=== PATIENT | male | born 1955 | race Caucasian/White ===

== ENCOUNTER 2018-08-06 22:40 | Emergency (ER) | payer MEDICAID ==
[~2018-08-06] VITALS: Ht 172.7 cm; Wt 136.1 kg
[~2018-08-06 22:40] MED LIST: ALBUAER3 IN; AMLO10TA12 PO; ASPI-231 PO; ATEN-60 PO; ATO40T PO; BACL10TA PO; BECL80AE9 IN; CLOP75TA41 PO; COLC1TAB3 PO; ERGO1CAP23 PO; EZET10TA6 PO; FAM20T PO; FLUT50SP13; FURO20TA3 PO; GLUCINJ IJ; HYDR-4683 PO; HYDR10TA26 PO; LISI40TA PO; LORA-352 PO; NITR400A5 TL; NORT25CA PO; OXYB5TAB24 PO; PANT1INJ3 PO; POTA10TA75 PO; SUMA100T15 PO; TAMS0.4C36 PO; TERA5CAP42 PO; insulin NPH SC
[2018-08-06] MEDS ORDERED: ONDANSETRON HCL 4 MG/2 ML VIAL ONE (23:26)
[2018-08-07 00:03] LABS: Basophils # (auto) 0 uL; Basophils % (auto) 0.5 % (0.0-2.0); Eosinophils # (auto) 0 uL; Lymphocytes # (auto) 0.7 uL; Monocytes # (auto) 0.8 uL; Neutrophils # (auto) 7.9 uL; White Blood Cell 9.5 10^3/uL (4.4-10.8)
[2018-08-07 00:05] LABS: Eosinophils % (auto) 0.1 % (0.0-7.0); Hematocrit 18.7 % (41.0-53.0); Lymphocytes % (auto) 7.4 % (10.0-50.0); Mean Corpuscular Hemoglobin 25.7 pg (28.0-32.0); Mean Corpuscular Hgb Conc. 32.7 g/dL (32.0-36.0); Mean Corpuscular Volume 78.6 fL (80.0-100.0); Monocytes % (auto) 8.2 % (0.0-12.0); Neutrophils % (auto) 83.8 % (37.0-80.0); Platelet Count (auto) 182 10^3/uL (140-450); Red Blood Cells 2.38 10^6/uL (4.5-5.90); Red Cell Distribution Width 15.6 % (11.8-14.3)
[2018-08-07 00:09] LABS: Hemoglobin 6.1 g/dL (13.5-17.5)
[2018-08-07 00:14] LABS: INR 1.07 (0.9-1.15); Partial Thromboplastin Time 25.5 sec (23.78-33.04); Prothrombin Time 11.4 sec (9.27-12.13)
[2018-08-07 00:18] LABS: Alanine Aminotransferase 20 U/L (16-61); Albumin 2.3 g/dL (3.4-5.0); Anion Gap 9 (5-15); Aspartate Aminotransferase 13 U/L (15-37); BUN/Creatinine Ratio 8.7; Blood Urea Nitrogen 52 mg/dL (7-18); Calcium 7.2 mg/dL (8.5-10.1); Carbon Dioxide 23 mmol/L (21-32); Chloride 108 mmol/L (98-107); GFR African American 12 mL/min; GFR Non-African American 10 mL/min; Glucose 159 mg/dL (74-106); Magnesium 2.5 mg/dL (1.6-2.6); Potassium 5.3 mmol/L (3.5-5.1); Sodium 140 mmol/L (136-145)
[2018-08-07 00:23] LABS: Alkaline Phosphatase 56 U/L (45-117); Bilirubin, Total 0.3 mg/dL (0.2-1.0); Total Protein 5.7 g/dL (6.4-8.2)
[2018-08-07] MEDS ORDERED: traMADol HCL 50 MG TAB PO ONE (01:00)
[2018-08-07] MEDS ORDERED: PANTOPRAZOLE 40 MG/10 ML VIAL IV ONE ×2 (03:30→03:45)
[2018-08-07 03:38] VITALS: BP 128/73
[2018-08-07 05:00] VITALS: BP 134/71
[2018-08-07 05:37] VITALS: BP 131/82
[2018-08-07 06:05] VITALS: BP 135/65
== END 2018-08-07 06:25 | disposition short-term general hospital (02) ==
LOC: EDUNIT# 22:40 → EDBD 22:40 → ER 22:42
DX: S09.90XA Unspecified injury of head, initial encounter (principal); D64.89 Other specified anemias; K92.2 Gastrointestinal hemorrhage, unspecified; E87.5 Hyperkalemia; E11.22 Type 2 diabetes mellitus with diabetic chronic kidney disease; I12.0 Hypertensive chronic kidney disease with stage 5 chronic kidney disease or end stage renal disease; N18.6 End stage renal disease; M48.00 Spinal stenosis, site unspecified; G40.909 Epilepsy, unspecified, not intractable, without status epilepticus; J45.909 Unspecified asthma, uncomplicated; I25.2 Old myocardial infarction; Z86.73 Personal history of transient ischemic attack (TIA), and cerebral infarction without residual deficits; Z99.2 Dependence on renal dialysis; X58.XXXA Exposure to other specified factors, initial encounter; Y93.89 Activity, other specified; Y99.8 Other external cause status; Y92.89 Other specified places as the place of occurrence of the external cause
CPT/HCPCS: 36415; 36430; 70450; 71045; 72125; 74176; 80053; 82962; 83735; 83880; 84484; 85025; 85610; 85730; 86850; 86900; 86901; 86920; 93005; 94761; 96374; 99285; C9113; J2405; J7040; P9016

== ENCOUNTER → 2020-02-13 | Emergency (ER) | payer MEDICAID ==
[~2020-02-13] VITALS: Ht 175.3 cm; Wt 95.3 kg
[~2020-02-13] MED LIST changes: -AMLO10TA12 PO; +AMLO10TA13 PO; +EZET10TA22 PO; -EZET10TA6 PO; -HYDR-4683 PO; +HYDR-4833 PO; +SODIUM CHLORIDE 0.9% 1,000 ML IV ONE; +SODIUM CHLORIDE 0.9% 500 ML IV ONE
[2020-02-13 15:58] LABS: Hematocrit 29.1 % (41.0-53.0); Hemoglobin 9.8 g/dL (13.5-17.5); Mean Corpuscular Hemoglobin 31.4 pg (28.0-32.0); Mean Corpuscular Hgb Conc. 33.7 g/dL (32.0-36.0); Mean Corpuscular Volume 93.2 fL (80.0-100.0); Platelet Count (auto) 247 10^3/uL (140-450); Red Blood Cells 3.12 10^6/uL (4.5-5.90); Red Cell Distribution Width 16.9 % (11.8-14.3); White Blood Cell 4.6 10^3/uL (4.4-10.8)
[2020-02-13 16:03] LABS: Basophils % (manual) 0 (0.0-2.0); Blast Cells 0; Metamyelocytes % 0; Myelocytes % 0; Promyelocytes % 0; Reactive Lymphocytes 0
[2020-02-13 16:19] LABS: INR 0.98 (0.9-1.15); Partial Thromboplastin Time 27.9 sec (23.64-32.05)
[2020-02-13 16:23] LABS: Albumin 2.3 g/dL (3.4-5.0); Anion Gap 6 (5-15); Blood Urea Nitrogen 27 mg/dL (7-18); Calcium 8.6 mg/dL (8.5-10.1); Carbon Dioxide 31 mmol/L (21-32); Chloride 96 mmol/L (98-107); Glucose 134 mg/dL (74-106); Magnesium 2.1 mg/dL (1.6-2.6); Potassium 3.6 mmol/L (3.5-5.1); Sodium 133 mmol/L (136-145)
[2020-02-13 16:31] LABS: Alanine Aminotransferase 28 U/L (16-61); Alkaline Phosphatase 107 U/L (45-117); Aspartate Aminotransferase 25 U/L (15-37); BUN/Creatinine Ratio 2.8; Bilirubin, Total 0.2 mg/dL (0.2-1.0); GFR African American 7 mL/min; GFR Non-African American 6 mL/min; Total Protein 6.9 g/dL (6.4-8.2)
[2020-02-13 16:54] LABS: Band Neutrophils % (manual) 2; Eosinophils % (manual) 3 (0-7); Lymphocytes % (manual) 23 (10.0-50.0); Monocytes % (manual) 18 (0-12)
[2020-02-13 18:43] VITALS: BP 107/58
== END | disposition home or self-care (01) ==
LOC: EDUNIT# 15:13 → EDBD 15:16 → ER 15:16
DX: I13.2 Hypertensive heart and chronic kidney disease with heart failure and with stage 5 chronic kidney disease, or end stage renal disease (principal); D63.1 Anemia in chronic kidney disease; E11.22 Type 2 diabetes mellitus with diabetic chronic kidney disease; N18.6 End stage renal disease; I50.9 Heart failure, unspecified; Z99.2 Dependence on renal dialysis; E86.1 Hypovolemia; R42 Dizziness and giddiness; I25.10 Atherosclerotic heart disease of native coronary artery without angina pectoris; J45.909 Unspecified asthma, uncomplicated; J44.9 Chronic obstructive pulmonary disease, unspecified; K21.9 Gastro-esophageal reflux disease without esophagitis; M10.9 Gout, unspecified
CPT/HCPCS: 36415; 71045; 80053; 83735; 83880; 84443; 84484; 85007; 85027; 85610; 85730; 93005; 96360; 96361

== ENCOUNTER 2021-06-18 11:35 | Inpatient (IN) | payer OTHER, MEDICAID ==
[~2021-06-18] VITALS: Ht 175.3 cm; Wt 118.2 kg
[~2021-06-18 11:35] MED LIST changes: +AMLO-496 PO; -AMLO10TA13 PO; -CLOP75TA41 PO; +CLOP75TA70 PO; -FAM20T PO; +FAMO20TA10 PO; -LISI40TA PO; +LISI40TA11 PO; -LORA-352 PO; +LORA10TA6 PO; +POTA-264 PO; -POTA10TA75 PO; -SODIUM CHLORIDE 0.9% 1,000 ML IV ONE; -SODIUM CHLORIDE 0.9% 500 ML IV ONE
[2021-06-18 12:12] LABS: Hematocrit 39.9 % (41.0-53.0); Hemoglobin 12.9 g/dL (13.5-17.5); Mean Corpuscular Hemoglobin 29.5 pg (28.0-32.0); Mean Corpuscular Hgb Conc. 32.3 g/dL (32.0-36.0); Mean Corpuscular Volume 91.2 fL (80.0-100.0); Red Blood Cells 4.38 10^6/uL (4.5-5.90); Red Cell Distribution Width 17.6 % (11.8-14.3); White Blood Cell 4.8 10^3/uL (4.4-10.8)
[2021-06-18 12:17] LABS: Band Neutrophils % (manual) 0; Basophils % (manual) 0 (0.0-2.0); Blast Cells 0; Metamyelocytes % 0; Myelocytes % 0; Promyelocytes % 0; Reactive Lymphocytes 0
[2021-06-18 12:24] LABS: Albumin 2.5 g/dL (3.4-5.0); Anion Gap 13 (5-15); Blood Urea Nitrogen 37 mg/dL (7-18); Calcium 8.6 mg/dL (8.5-10.1); Carbon Dioxide 24 mmol/L (21-32); Chloride 97 mmol/L (98-107); Glucose 191 mg/dL (74-106); Magnesium 2.2 mg/dL (1.6-2.6); Potassium 3.9 mmol/L (3.5-5.1); Sodium 134 mmol/L (136-145)
[2021-06-18 12:30] LABS: Alanine Aminotransferase 42 U/L (16-61); Alkaline Phosphatase 92 U/L (45-117); Aspartate Aminotransferase 34 U/L (15-37); BUN/Creatinine Ratio 3.8; Bilirubin, Total 0.4 mg/dL (0.2-1.0); GFR African American 7 mL/min; GFR Non-African American 6 mL/min
[2021-06-18 12:33] LABS: INR 1.02 (0.9-1.15); Partial Thromboplastin Time 25.6 sec (23.0-31.2)
[2021-06-18 12:39] LABS: Eosinophils % (manual) 2 (0-7); Lymphocytes % (manual) 24 (10.0-50.0); Monocytes % (manual) 14 (0-12)
[2021-06-18] MEDS ORDERED: DEXTROSE (50%) 50ML SYRG IV PRN (15:45)
[2021-06-18] MEDS ORDERED: BACLOFEN 10 MG TAB PO PRN (15:45)
[2021-06-18] MEDS ORDERED: MORPHINE SULF INJ 2 MG/ML SYRINGE 1ML IV PRN (15:45)
[2021-06-18] MEDS ORDERED: NITROGLYCERIN 0.4 MG SL TAB SL PRN (15:45)
[2021-06-18] MEDS: InsuLIN REG 1unit/0.01ml Soln (100units/ml) SC SCH ×2 (17:00→22:46)
[2021-06-18] MEDS: ACCU-CHEK COMFORT CURVE STRIP VI SCH ×2 (18:16→22:00)
[2021-06-18 19:00] VITALS: BP 129/74
[2021-06-18 22:00] VITALS: BP 139/75
[2021-06-18] MEDS: ATENOLOL 25 MG TAB PO SCH (22:00)
[2021-06-19 05:00] VITALS: BP 119/69
[2021-06-19] MEDS: ACCU-CHEK COMFORT CURVE STRIP VI SCH ×4 (06:50→21:44)
[2021-06-19] MEDS: InsuLIN REG 1unit/0.01ml Soln (100units/ml) SC SCH ×4 (06:52→21:45)
[2021-06-19 09:00] VITALS: BP 114/64
[2021-06-19] MEDS: ASPirin-EC 81 mg tab PO SCH (09:53)
[2021-06-19] MEDS: CLOPIDOGREL BISULFATE 75 MG TAB PO SCH (09:53)
[2021-06-19] MEDS ORDERED: FAMOTIDINE 20 MG TAB PO SCH (10:00)
[2021-06-19] MEDS ORDERED: PANTOPRAZOLE 40 MG/10 ML VIAL INJ IV SCH (10:00)
[2021-06-19] MEDS: ATENOLOL 25 MG TAB PO SCH ×2 (10:00→21:53)
[2021-06-19 12:54] VITALS: BP 119/73
[2021-06-19] MEDS ORDERED: IODIXANOL 320MG/ML 100ML BTL IV ONE (12:58)
[2021-06-19] MEDS ORDERED: fentaNYL CITRATE 100 MCG/2 ML VL ONE (13:01)
[2021-06-19] MEDS ORDERED: HEPARIN SODIUM (PORCINE) 5000 UNITS/ML 1ML VIAL ONE (13:01)
[2021-06-19] MEDS ORDERED: VERAPAMIL 2.5MG/ML INJ 2ML VIAL IV ONE (13:01)
[2021-06-19] MEDS ORDERED: ANGIOMAX 250 MG VIAL IV ONE (13:01)
[2021-06-19] MEDS ORDERED: MIDAZOLAM HCL 1MG/1ML-2 ML VIAL ONE (13:02)
[2021-06-19] MEDS ORDERED: SODIUM CHL 0.9% 50 ML ONE (13:02)
[2021-06-19 13:27] LABS: Phosphorus 6.1 mg/dL (2.5-4.90); Uric Acid 4.8 mg/dL (3.5-7.2)
[2021-06-19] MEDS ORDERED: PHENYLEPHRINE HCL 10 MG/ML VL ONE (14:09)
[2021-06-19] MEDS ORDERED: HYDROcodone-ACET 5/325MG TAB PO PRN (15:15)
[2021-06-19] MEDS ORDERED: ONDANSETRON HCL 4 MG/2 ML VIAL IV PRN (15:15)
[2021-06-19] MEDS ORDERED: HYDROcodone-ACET 5/325MG TAB ONE (15:17)
[2021-06-19 16:51] VITALS: BP 110/68
[2021-06-19] MEDS ORDERED: TAMSULOSIN HYDROCHLORIDE 0.4 MG CAP PO SCH (18:00)
[2021-06-19] MEDS: SODIUM CHLOR 0.9% PF (SALINE LOCK) 10ML VIAL/SYR IV SCH (21:33)
[2021-06-19 22:00] VITALS: BP 160/91
[2021-06-19] MEDS ORDERED: ATORVASTATIN 20 MG TAB PO SCH (22:00)
[2021-06-20 05:00] VITALS: BP 143/108
[2021-06-20] MEDS: SODIUM CHLOR 0.9% PF (SALINE LOCK) 10ML VIAL/SYR IV SCH ×2 (05:49→14:00)
[2021-06-20 06:19] VITALS: BP 103/55
[2021-06-20] MEDS: ACCU-CHEK COMFORT CURVE STRIP VI SCH ×2 (06:21→12:25)
[2021-06-20] MEDS: InsuLIN REG 1unit/0.01ml Soln (100units/ml) SC SCH ×2 (06:26→12:40)
[2021-06-20 09:00] VITALS: BP 121/94
[2021-06-20] MEDS: ATENOLOL 25 MG TAB PO SCH (10:00)
[2021-06-20] MEDS ORDERED: ERGOCALCIFEROL 50,000 UNIT(1.25MG) CAP PO SCH (10:00)
[2021-06-20] MEDS: CLOPIDOGREL BISULFATE 75 MG TAB PO SCH (10:09)
[2021-06-20] MEDS: ASPirin-EC 81 mg tab PO SCH (10:09)
[2021-06-20] MEDS: ACETAMINOPHEN 500 MG TAB PO PRN ×2 (10:18→15:28)
[2021-06-20] MEDS ORDERED: LACT10SO70 PO (11:26)
[2021-06-20] MEDS ORDERED: ALBUAER3 IN (11:26)
[2021-06-20] MEDS ORDERED: GUAISYP6 PO (11:26)
[2021-06-20] MEDS ORDERED: DOCU100T15 PO (11:26)
[2021-06-20] MEDS ORDERED: VENL37.588 PO (11:26)
[2021-06-20] MEDS ORDERED: CALC600T49 PO (11:26)
[2021-06-20] MEDS ORDERED: CALC0.25 PO (11:26)
[2021-06-20] MEDS ORDERED: FEBU40TA PO (11:26)
[2021-06-20] MEDS ORDERED: GABA300C10 PO (11:26)
[2021-06-20] MEDS ORDERED: GENT0.1C3 EX (11:26)
[2021-06-20] MEDS ORDERED: NORT25CA PO (11:26)
[2021-06-20] MEDS ORDERED: TRAZ1TAB12 PO (11:26)
[2021-06-20] MEDS ORDERED: SEVE800T8 PO (11:26)
[2021-06-20] MEDS ORDERED: CICL80AE2 IN (11:26)
[2021-06-20] MEDS ORDERED: ATOR80TA PO (11:26)
[2021-06-20] MEDS ORDERED: FOLI1TAB6 PO (11:26)
[2021-06-20] MEDS ORDERED: SEVELAMER 800 MG TAB PO SCH (12:00)
[2021-06-20] MEDS ORDERED: PANTOPRAZOLE 40 MG TAB PO ONE (12:15)
[2021-06-20 13:00] VITALS: BP 126/67
[2021-06-20 16:19] VITALS: BP 93/40
[2021-06-20 17:32] VITALS: BP 101/58
[2021-06-21] MEDS ORDERED: PANTOPRAZOLE 40 MG TAB PO SCH (10:00)
== END 2021-06-20 18:00 | disposition home or self-care (01) | DRG 246 ==
LOC: ER 11:35 → EDBD 11:35 → TELE 15:32 → TELE-WESTW 17:17
PROVIDERS: ADMIT Nurse Practitioner Acute Care; ATTEND Internal Medicine
PROC: 027136Z Dilation of Coronary Artery, Two Arteries with Three Drug-eluting Intraluminal Devices, Percutaneous Approach (ICD-10-PCS; principal; 2021-06-19)
PROC: 4A023N7 Measurement of Cardiac Sampling and Pressure, Left Heart, Percutaneous Approach (ICD-10-PCS; 2021-06-19)
PROC: B211YZZ Fluoroscopy of Multiple Coronary Arteries using Other Contrast (ICD-10-PCS; 2021-06-19)
PROC: B215YZZ Fluoroscopy of Left Heart using Other Contrast (ICD-10-PCS; 2021-06-19)
PROC: B240ZZ3 Ultrasonography of Single Coronary Artery, Intravascular (ICD-10-PCS; 2021-06-19)
PROC: 3E073KZ Introduction of Other Diagnostic Substance into Coronary Artery, Percutaneous Approach (ICD-10-PCS; 2021-06-19)
DX: I24.9 Acute ischemic heart disease, unspecified (principal); N18.6 End stage renal disease; I13.2 Hypertensive heart and chronic kidney disease with heart failure and with stage 5 chronic kidney disease, or end stage renal disease; I25.10 Atherosclerotic heart disease of native coronary artery without angina pectoris; I95.0 Idiopathic hypotension; Z99.2 Dependence on renal dialysis; E66.9 Obesity, unspecified; D63.8 Anemia in other chronic diseases classified elsewhere; K21.9 Gastro-esophageal reflux disease without esophagitis; E78.5 Hyperlipidemia, unspecified; I95.1 Orthostatic hypotension; J44.9 Chronic obstructive pulmonary disease, unspecified; E11.22 Type 2 diabetes mellitus with diabetic chronic kidney disease; E11.65 Type 2 diabetes mellitus with hyperglycemia; N25.0 Renal osteodystrophy; N40.0 Benign prostatic hyperplasia without lower urinary tract symptoms; Z79.02 Long term (current) use of antithrombotics/antiplatelets; Z79.82 Long term (current) use of aspirin; Z79.84 Long term (current) use of oral hypoglycemic drugs; Z79.899 Other long term (current) drug therapy; Z82.49 Family history of ischemic heart disease and other diseases of the circulatory system; Z83.3 Family history of diabetes mellitus; Z86.73 Personal history of transient ischemic attack (TIA), and cerebral infarction without residual deficits; Z87.891 Personal history of nicotine dependence; Z95.5 Presence of coronary angioplasty implant and graft; I50.9 Heart failure, unspecified; E83.39 Other disorders of phosphorus metabolism
CPT/HCPCS: 36415; 71045; 80053; 82140; 82306; 82533; 82962; 83036; 83735; 83880; 83970; 84100; 84484; 84550; 85007; 85027; 85379; 85610; 85730; 87426; 93005; 93306; 99152; 99153; 99291; C1874; C1887; C9113; G0378; J1815; J2250; Q9967

== ENCOUNTER 2021-11-20 16:17 | Inpatient (IN) | payer OTHER, MEDICAID ==
[~2021-11-20] VITALS: Ht 175.3 cm; Wt 104.0 kg
[~2021-11-20 16:17] MED LIST changes: -AMLO-496 PO; -ASPI-231 PO; +ASPI1TAB20 PO; -ATEN-60 PO; +CALC0.25 PO; +CALC600T49 PO; +CICL80AE2 IN; +DOCU100T15 PO; +FEBU40TA PO; +FOLI1TAB6 PO; -FURO20TA3 PO; +GABA300C10 PO; +GENT0.1C3 EX; +GUAISYP6 PO; -HYDR10TA26 PO; +LACT10SO70 PO; -LISI40TA11 PO; -PANT1INJ3 PO; +SEVE800T8 PO; -TAMS0.4C36 PO; +TRAZ1TAB12 PO; +VENL37.588 PO; -insulin NPH SC
[2021-11-20] MEDS ORDERED: ASPirin 81 mg TAB PO ONE (17:00)
[2021-11-20] MEDS ORDERED: SODIUM CHLORIDE 0.9% 250 ML IV ONE (18:15)
[2021-11-20 18:18] LABS: Red Blood Cells 5.61 10^6/uL (4.5-5.90)
[2021-11-20 18:20] LABS: Hematocrit 49.4 % (41.0-53.0); Hemoglobin 15.1 g/dL (13.5-17.5); Mean Corpuscular Hgb Conc. 30.7 g/dL (32.0-36.0); Mean Corpuscular Volume 87.9 fL (80.0-100.0); Red Cell Distribution Width 19.6 % (11.8-14.3); White Blood Cell 5.5 10^3/uL (4.4-10.8)
[2021-11-20 18:26] LABS: Basophils % (manual) 0 (0.0-2.0); Blast Cells 0; Metamyelocytes % 0; Myelocytes % 0; Promyelocytes % 0; Reactive Lymphocytes 0
[2021-11-20 18:35] LABS: INR 1.25 (0.9-1.15); Partial Thromboplastin Time 30.7 sec (23.6-33.0)
[2021-11-20 18:37] LABS: Anion Gap 11 (5-15); Blood Urea Nitrogen 25 mg/dL (7-18); Carbon Dioxide 28 mmol/L (21-32); Chloride 95 mmol/L (98-107); Glucose 154 mg/dL (74-106); Magnesium 2.4 mg/dL (1.6-2.6); Sodium 134 mmol/L (136-145)
[2021-11-20 18:44] LABS: Alanine Aminotransferase < 6 U/L (16-61); Alkaline Phosphatase 136 U/L (45-117); Aspartate Aminotransferase 50 U/L (15-37); BUN/Creatinine Ratio 2.8; Bilirubin, Total 0.4 mg/dL (0.2-1.0); GFR African American 8 mL/min; GFR Non-African American 6 mL/min; Total Protein 6.6 g/dL (6.4-8.2)
[2021-11-20 18:59] LABS: Potassium 2.9 mmol/L (3.5-5.1)
[2021-11-20] MEDS ORDERED: ONDANSETRON HCL 4 MG/2 ML VIAL IV PRN (19:30)
[2021-11-20] MEDS ORDERED: NITROGLYCERIN 0.4 MG SL TAB SL PRN (19:30)
[2021-11-20] MEDS ORDERED: traMADol HCL 50 MG TAB PO PRN (19:30)
[2021-11-20] MEDS ORDERED: VANCOMYCIN PER PHARMACY 0 MG IV SCH (19:30)
[2021-11-20] MEDS ORDERED: POTASSIUM CHLORIDE 20 MEQ, LIDOCAINE 1% (LOCAL ANESTH.) 2 ML in SODIUM CHL 0.9% 100 ML IV ONE (19:30)
[2021-11-20] MEDS ORDERED: cefTRIAXone 1GM/50ML D5W 50 ML IV ONE (19:30)
[2021-11-20] MEDS ORDERED: MORPHINE SULFATE INJECTION 2 MG/ML SYRG IV PRN ×2 (19:30)
[2021-11-20] MEDS ORDERED: PANTOPRAZOLE 40 MG/10 ML VIAL INJ IV ONE (19:30)
[2021-11-20] MEDS ORDERED: ACETAMINOPHEN 500 MG TAB PO PRN (19:30)
[2021-11-20] MEDS ORDERED: DEXTROSE (50%) 50ML SYRG IV PRN (19:30)
[2021-11-20 20:06] LABS: Band Neutrophils % (manual) 5; Eosinophils % (manual) 3 (0-7); Lymphocytes % (manual) 20 (10.0-50.0); Monocytes % (manual) 18 (0-12)
[2021-11-20] MEDS ORDERED: VANCOMYCIN 1GM/250ML 250 ML IV ONE ×2 (21:15→22:15)
[2021-11-20] MEDS ORDERED: POTASSIUM CHL 20 Meq TABLET PO ONE (21:30)
[2021-11-20] MEDS ORDERED: PERITONEAL DIALYSIS 1.5% SOLN 2,000 ML IP ONE (21:30)
[2021-11-20] MEDS ORDERED: ATORVASTATIN 20 MG TAB PO SCH (22:00)
[2021-11-20] MEDS ORDERED: VANCOMYCIN 500 MG in D5W 5% 100 ML IV ONE ×2 (22:15→23:15)
[2021-11-20] MEDS ORDERED: FAMOTIDINE 20 MG TAB PO ONE (23:30)
[2021-11-20] MEDS ORDERED: SUCRALFATE 1 GM/10 ML ORAL SUSP PO ONE (23:30)
[2021-11-20] MEDS ORDERED: LIDOCAINE VISCOUS 2% 15ML UD PO ONE (23:30)
[2021-11-21] MEDS ORDERED: ACCU-CHEK COMFORT CURVE STRIP VI SCH
[2021-11-21] MEDS ORDERED: InsuLIN REG 1unit/0.01ml Soln (100units/ml) SC SCH
[2021-11-21 04:28] VITALS: BP 127/55
[2021-11-21] MEDS ORDERED: POTASSIUM CHL 20 Meq TABLET PO SCH (08:00)
[2021-11-21] MEDS ORDERED: SEVELAMER 800 MG TAB PO SCH (08:00)
[2021-11-21] MEDS ORDERED: CALCIUM CARB 500 MG CHEW TAB PO SCH (08:00)
[2021-11-21] MEDS ORDERED: cefTRIAXone 1GM/50ML D5W 50 ML IV SCH (09:00)
[2021-11-21] MEDS ORDERED: CLOPIDOGREL BISULFATE 75 MG TAB PO SCH (10:00)
[2021-11-21] MEDS ORDERED: PANTOPRAZOLE 40 MG/10 ML VIAL INJ IV SCH (10:00)
[2021-11-21] MEDS ORDERED: ASPirin 81 mg TAB PO SCH (10:00)
== END 2021-11-21 04:18 | disposition left against medical advice (07) | DRG 314 ==
LOC: ER 16:17 → TELE 19:18
PROVIDERS: ADMIT Internal Medicine; ATTEND Internal Medicine
DX: I95.9 Hypotension, unspecified (principal); N18.6 End stage renal disease; I13.2 Hypertensive heart and chronic kidney disease with heart failure and with stage 5 chronic kidney disease, or end stage renal disease; R10.9 Unspecified abdominal pain; E11.22 Type 2 diabetes mellitus with diabetic chronic kidney disease; E66.9 Obesity, unspecified; E78.5 Hyperlipidemia, unspecified; E87.6 Hypokalemia; I25.10 Atherosclerotic heart disease of native coronary artery without angina pectoris; I50.9 Heart failure, unspecified; J44.9 Chronic obstructive pulmonary disease, unspecified; M10.9 Gout, unspecified; Z20.822 Contact with and (suspected) exposure to COVID-19; F32.A Depression, unspecified; K21.9 Gastro-esophageal reflux disease without esophagitis; R53.81 Other malaise; R55 Syncope and collapse; Z68.33 Body mass index [BMI] 33.0-33.9, adult; Z86.73 Personal history of transient ischemic attack (TIA), and cerebral infarction without residual deficits; Z87.891 Personal history of nicotine dependence; Z95.0 Presence of cardiac pacemaker; Z95.5 Presence of coronary angioplasty implant and graft; Z99.2 Dependence on renal dialysis
CPT/HCPCS: 36415; 71045; 74176; 80053; 82962; 83690; 83735; 83880; 84484; 85007; 85027; 85610; 85730; 87426; 93005; 96361; 96374; C9113; G0378; J0696; J2001; J7060

== ENCOUNTER 2021-12-02 09:42 | Emergency (ER) | payer OTHER, MEDICAID ==
[~2021-12-02] VITALS: Ht 175.3 cm; Wt 127.0 kg
[2021-12-02 12:06] LABS: Eosinophils # (auto) 0.1 10 ^3/uL (0-0.8); Lymphocytes % (auto) 14.1 % (10.0-50.0); Monocytes # (auto) 1.2 10 ^3/uL (0-1.3)
[2021-12-02 12:48] LABS: Basophils # (auto) 0.1 10 ^3/uL (0-0.2); Eosinophils % (auto) 1.6 % (0.0-7.0); Hemoglobin 17.5 g/dL (13.5-17.5); Mean Corpuscular Hemoglobin 27.3 pg (28.0-32.0); Mean Corpuscular Hgb Conc. 30.9 g/dL (32.0-36.0); Mean Corpuscular Volume 88.5 fL (80.0-100.0); Monocytes % (auto) 16.7 % (0.0-12.0); Neutrophils # (auto) 4.9 10 ^3/uL (1.6-8.6); Neutrophils % (auto) 66.6 % (37.0-80.0); Nucleated Red Blood Cells % 0.8 %; Red Blood Cells 6.39 10^6/uL (4.5-5.90); Red Cell Distribution Width 20.3 % (11.8-14.3); White Blood Cell 7.4 10^3/uL (4.4-10.8)
[2021-12-02 12:49] LABS: Hematocrit 56.6 % (41.0-53.0)
[2021-12-02 16:09] VITALS: BP 99/62
[2021-12-02] MEDS ORDERED: SODIUM CHLORIDE 0.9% 500 ML IV ONE (16:15)
== END 2021-12-02 15:24 | disposition home or self-care (01) ==
LOC: ER 09:42 → EDBD 09:42 → ER 15:24
DX: N18.6 End stage renal disease (principal); D63.1 Anemia in chronic kidney disease; I13.2 Hypertensive heart and chronic kidney disease with heart failure and with stage 5 chronic kidney disease, or end stage renal disease; E11.22 Type 2 diabetes mellitus with diabetic chronic kidney disease; I50.9 Heart failure, unspecified; J44.9 Chronic obstructive pulmonary disease, unspecified; K21.9 Gastro-esophageal reflux disease without esophagitis; I25.2 Old myocardial infarction; E03.9 Hypothyroidism, unspecified; E78.5 Hyperlipidemia, unspecified; M10.9 Gout, unspecified; I25.10 Atherosclerotic heart disease of native coronary artery without angina pectoris; Z99.2 Dependence on renal dialysis; Z95.0 Presence of cardiac pacemaker; Z87.891 Personal history of nicotine dependence; Z79.82 Long term (current) use of aspirin; Z79.01 Long term (current) use of anticoagulants; Z79.899 Other long term (current) drug therapy; Z88.8 Allergy status to other drugs, medicaments and biological substances; Z20.822 Contact with and (suspected) exposure to COVID-19
CPT/HCPCS: 36415; 71045; 74176; 83880; 85025; 87426; 96360; 99285; J7040

== ENCOUNTER 2022-04-02 10:09 | Emergency (ER) | payer OTHER, MEDICAID ==
[~2022-04-02] VITALS: Ht 175.3 cm; Wt 105.7 kg
[2022-04-02] MEDS ORDERED: ASPirin 81 mg TAB PO ONE (10:30)
[2022-04-02 11:04] LABS: Basophils # (auto) 0.1 10 ^3/uL (0-0.2); Basophils % (auto) 1.6 % (0.0-2.0); Eosinophils # (auto) 0.3 10 ^3/uL (0-0.8); Eosinophils % (auto) 5.6 % (0.0-7.0); Hematocrit 30.5 % (41.0-53.0); Hemoglobin 10.1 g/dL (13.5-17.5); Lymphocytes # (auto) 1.1 10 ^3/uL (0.4-5.4); Lymphocytes % (auto) 17.7 % (10.0-50.0); Mean Corpuscular Hemoglobin 29.1 pg (28.0-32.0); Mean Corpuscular Hgb Conc. 33.2 g/dL (32.0-36.0); Mean Corpuscular Volume 87.7 fL (80.0-100.0); Monocytes # (auto) 0.7 10 ^3/uL (0-1.3); Monocytes % (auto) 11.7 % (0.0-12.0); Neutrophils # (auto) 3.9 10 ^3/uL (1.6-8.6); Neutrophils % (auto) 63.4 % (37.0-80.0); Nucleated Red Blood Cells % 0.3 %; Red Blood Cells 3.48 10^6/uL (4.5-5.90); Red Cell Distribution Width 17.8 % (11.8-14.3); White Blood Cell 6.2 10^3/uL (4.4-10.8)
[2022-04-02 11:24] LABS: INR 2.62 (0.9-1.15); Partial Thromboplastin Time 41.9 sec (23.6-33.0)
[2022-04-02 11:28] LABS: Potassium 3.8 mmol/L (3.5-5.1)
[2022-04-02 11:39] LABS: BUN/Creatinine Ratio 4.6
[2022-04-02 11:40] LABS: Albumin 2.6 g/dL (3.4-5.0); Bilirubin, Total 0.2 mg/dL (0.2-1.0); Calcium 8.7 mg/dL (8.5-10.1); Total Protein 6.5 g/dL (6.4-8.2)
[2022-04-02] MEDS ORDERED: MORPHINE SULFATE INJECTION 2 MG/ML SYRG IV ONE (12:30)
[2022-04-02] MEDS ORDERED: NITROGLYCERIN 0.4 MG SL TAB SL ONE (15:15)
[2022-04-02] MEDS ORDERED: ACETAMINOPHEN 325 MG TAB PO ONE (20:15)
[2022-04-02 23:36] VITALS: BP 147/72
== END 2022-04-03 00:17 | disposition short-term general hospital (02) ==
LOC: EDBD 10:09 → EDUNIT# 10:09 → ER 10:09
DX: I24.9 Acute ischemic heart disease, unspecified (principal); E11.22 Type 2 diabetes mellitus with diabetic chronic kidney disease; N18.6 End stage renal disease; Z99.2 Dependence on renal dialysis; I50.9 Heart failure, unspecified; I25.10 Atherosclerotic heart disease of native coronary artery without angina pectoris; J44.9 Chronic obstructive pulmonary disease, unspecified; K21.9 Gastro-esophageal reflux disease without esophagitis; M10.9 Gout, unspecified; E78.5 Hyperlipidemia, unspecified; I25.2 Old myocardial infarction; E03.9 Hypothyroidism, unspecified; Z86.73 Personal history of transient ischemic attack (TIA), and cerebral infarction without residual deficits; Z95.0 Presence of cardiac pacemaker; Z87.891 Personal history of nicotine dependence; Z79.82 Long term (current) use of aspirin; Z79.01 Long term (current) use of anticoagulants; Z79.899 Other long term (current) drug therapy; Z88.8 Allergy status to other drugs, medicaments and biological substances; Z91.018 Allergy to other foods; Z20.822 Contact with and (suspected) exposure to COVID-19
CPT/HCPCS: 36415; 71045; 80053; 83880; 84484; 85025; 85610; 85730; 87426; 93005; 96374; 99285; J2270

== ENCOUNTER 2022-12-04 16:03 | Emergency (ER) | payer OTHER, MEDICAID ==
[~2022-12-04] VITALS: Ht 172.7 cm; Wt 115.0 kg
[2022-12-04 16:10] VITALS: BP 159/75
== END 2022-12-04 18:03 | disposition left against medical advice (07) ==
LOC: EDUNIT# 16:03 → EDBD 16:03 → ER 16:03
DX: R42 Dizziness and giddiness (principal); Z53.21 Procedure and treatment not carried out due to patient leaving prior to being seen by health care provider
CPT/HCPCS: 93005